=== PATIENT | female | born 1990 | race Caucasian/White ===

== ENCOUNTER 2024-10-16 18:18 | Emergency (ER) | payer OTHER, SELFPAY ==
[2024-10-16 18:22] VITALS: BP 135/77; PULSE 87; RESP 16; TEMP 37; O2SAT 100; BMI 24.8
[2024-10-16 19:29] LABS: Alanine Aminotransferase 19 IU/L (<35); Albumin 4.7 g/dL (3.5-5.0); Albumin Globulin Ratio 1.8 (1.0-2.8); Alkaline Phosphatase 33 U/L (38-126); Aspartate Aminotransferase 26 IU/L (14-36); BUN Creatinine Ratio 17.1 (6-22); Bilirubin Total 1.1 mg/dL (0.2-1.3); Blood Urea Nitrogen 13 mg/dL (7-17); Calcium 9.6 mg/dL (8.4-10.2); Carbon Dioxide 28 mmol/L (22-32); Chloride 104 mmol/L (98-107); Estimated Glomerular Filt Rate > 60 mL/min (>60); Globulin 2.6 g/dL (1.7-4.1); Glucose 102 mg/dL (70-100); HEMOLYSIS < 15 (0-50); Lipase 78 U/L (23-300); Potassium 3.9 mmol/L (3.4-5.1); Sodium 139 mmol/L (137-145); Total Protein 7.3 g/dL (6.3-8.2)
[2024-10-16 19:32] LABS: Add Manual Diff / Slide Review NO; Basophils Absolute Auto 100 /uL (0-100); Basophils Percent Auto 2.1 % (0-2); Eosinophils Absolute Auto 100 /uL (0-450); Eosinophils Percent Auto 1.7 % (2-4); Hematocrit 41.5 % (36-46); Hemoglobin 14.1 g/dL (12.0-16.0); Lymphocytes Absolute Auto 1700 /uL (1100-4500); Lymphocytes Percent Auto 35.4 % (25-40); Mean Corpuscular HGB Conc 33.9 % (30-36); Mean Corpuscular Hemoglobin 32.1 PG (26-34); Mean Corpuscular Volume 94.8 fL (80-100); Monocytes Absolute Auto 400 /uL (0-900); Monocytes Percent Auto 8.1 % (3-14); Neutrophils Absolute Auto 2600 /uL (1500-7000); Neutrophils Percent Auto 52.7 % (50-75); Platelet Count 222 X10^3/uL (150-400); Red Blood Cell Count 4.38 X10^6/uL (4.0-5.2); White Blood Cell Count 4.9 X10^3/uL (4.5-11.0)
--- NOTE | 2024-10-16 22:28 | ED_ITS ---
HPI - Abdominal Pain General Chief Complaint: Abdominal Pain Stated Complaint: womens health issues Time Seen by Provider: 10/16/24 22:28 Source: patient, RN notes reviewed and old records reviewed Mode of arrival: Ambulatory Limitations: no limitations History of Present Illness HPI narrative: 34-year-old female no reported medical issues who presents with complaint of lower pelvic pain for the past 1-2 days. States the pain has been a little bit more in the left but has been on both left and right but seems to be more predominant to the left. Patient notes she used to have an IUD was removed after about 7 years had kind of irregular periods followed by a period of regular 28 day cycles and then has become more regular again her most recent was about 11 days late she just finished it about 2 days ago. She states it was a typical otherwise. She denies fevers or chills. She was has a little bit occasional nausea. No chest pain or shortness of breath. No back or flank pain. Denies any diarrhea or constipation, no black or bloody stools. Little bit of urinary frequency but no dysuria or extensive urgency. She states no vaginal discharge. She is sexually active no concerns for STIs. She is currently trying to get . Patient states she was on a no other daily medications. She was had prior adenoids removed. Denies any other surgeries. No known drug allergies. No tobacco, occasional alcohol, no recreational drugs. Patient defers anything for pain. Related Data Allergies Allergy/AdvReac Type Severity Reaction Status Date / Time No Known Drug Allergies Allergy Verified 10/16/24 18:22 Review of Systems Review of Systems ROS Unobtainable: All systems reviewed & are unremarkable except as noted in HPI and below Patient History Social History Smoking Status: Never smoker Smoking Status: Never smoker Exam Narrative Exam Narrative: GENERAL: Alert and oriented x three, well-appearing female in no acute distress. HEENT: Head normocephalic, atraumatic, EOMI, pupils reactive, face symmetric, moist mucous membranes NECK: Supple, full range of motion CARDIOVASCULAR: Regular rate and rhythm without murmurs, rubs or gallops. RESPIRATORY: Breath sounds equal bilaterally, no wheezes rales or rhonchi. ABDOMEN: Soft, nontender. Nondistended. Normoactive bowel sounds all 4 quadrants. No guarding or rebound, rigidity, no mass : No CVA tenderness EXTREMITIES: Normal range of motion, no clubbing or edema. Neurovascularly intact NEUROLOGICAL: Cranial nerves II through XII grossly intact. Moving all extremities SKIN: Warm, dry, no petechiae, no rashes or lesions. Initial Vital Signs Initial Vital Signs: Vital Signs Temperature 98.6 F 10/16/24 18:22 Pulse Rate 87 10/16/24 18:22 Respiratory Rate 16 10/16/24 18:22 Blood Pressure 135/77 10/16/24 18:22 Pulse Oximetry 100 10/16/24 18:22 Oxygen Delivery Method Room Air 10/16/24 18:22 Course Orders Ordered: ED Orders 10/16/24 19:09 Complete Blood Count AUTO DIFF Stat Comprehensive Metabolic Panel Stat Lipase Stat 10/16/24 22:39 US pelvic complete Stat 10/16/24 23:20 Wet Prep Tric BV [place] Stat Discontinued Medications Ondansetron HCl (Ondansetron 4 Mg/2 Ml Inj) 4 mg IV NOW PRN PRN Reason: Nausea And Vomiting Ondansetron HCl (Ondansetron 4 Mg Odt) 4 mg PO NOW PRN PRN Reason: Nausea And Vomiting Vital Signs Vital signs: Vital Signs - 8 hr 10/16/24 18:22 10/17/24 00:52 Temperature 98.6 F Pulse Rate 87 77 Respiratory Rate 16 18 Blood Pressure 135/77 129/76 Pulse Oximetry 100 99 Oxygen Delivery Method Room Air Room Air MDM - Abdominal Pain Lab Data 10/16/24 19:09 10/16/24 19:09 Labs: Lab Results 10/16/24 Range/Units 19:09 WBC 4.9 (4.5-11.0) X10^3/uL RBC 4.38 (4.0-5.2) X10^6/uL Hgb 14.1 (12.0-16.0) g/dL Hct 41.5 (36-46) % MCV 94.8 (80-100) fL MCH 32.1 (26-34) PG MCHC 33.9 (30-36) % RDW 13.0 (11.6-14.8) % Plt Count 222 (150-400) X10^3/uL Neut % (Auto) 52.7 (50-75) % Lymph % (Auto) 35.4 (25-40) % [place]cd[place] % (Auto) 8.1 (3-14) % Eos % (Auto) 1.7 L (2-4) % Baso % (Auto) 2.1 H (0-2) % Neut # (Auto) 2600 (4728-4698) /uL Lymph # (Auto) 1700 (8543-2260) /uL Mcdonough # (Auto) 400 (0-900) /uL Eos # (Auto) 100 (0-450) /uL Baso # (Auto) 100 (0-100) /uL Sodium 139 (137-145) mmol/L Potassium 3.9 (3.4-5.1) mmol/L Chloride 104 (98-107) mmol/L Carbon Dioxide 28 (22-32) mmol/L BUN 13 (7-17) mg/dL Creatinine 0.76 (0.52-1.04) mg/dL Estimated GFR > 60 (>60) mL/min BUN/Creatinine Ratio 17.1 (6-22) Glucose 102 H (70-100) mg/dL Calcium 9.6 (8.4-10.2) mg/dL Total Bilirubin 1.1 (0.2-1.3) mg/dL AST 26 (14-36) IU/L ALT 19 (<35) IU/L Alkaline Phosphatase 33 L (38-126) U/L Total Protein 7.3 (6.3-8.2) g/dL Albumin 4.7 (3.5-5.0) g/dL Globulin 2.6 (1.7-4.1) g/dL Albumin/Globulin Ratio 1.8 (1.0-2.8) Lipase 78 (23-300) U/L Point of care testing: Point of Care Testing Test Results Negative Urine Dip Bedside Urine Glucose Negative Bedside Urine Bilirubin - Negative Bedside Urine Ketone - Negative Urine Specific [place] 1.005 Bedside Urine Occult Blood - Negative Bedside Urine pH 8.0 Bedside Urine Protein - Negative Bedside Urine Urobilinogen - Negative Bedside Urine Nitrite - Negative Bedside Urine Leukocytes - Negative Esterase MDM Narrative Medical decision making narrative: 34-year-old female lower pelvic pain has had somewhat irregular menses is trying to get , labs show normal white count hemoglobin and platelets. Chemistries are overall appropriate normal renal function glucose is 102 alk- phos is 33 LFTs are negative. Urine is negative, point of care urine is negative. Wet mount is negative. Pelvic ultrasound found acute sonographic abnormality prominent ovarian volumes bilaterally with greater than 12 follicle seen in each ovary no evidence of torsion findings may ultrasound definition of polycystic ovaries. Findings are nonspecific. Patient has mild pain she and I discussed pelvic exam but she politely defers she does not have high concerns for STIs but is agreeable to wet prep with self swab. We will also obtain pelvic ultrasound labs, and urine are otherwise normal. Discussed patient's findings her workup tonight. She was very comfortable she has follow up with the OBG[facility] [employer] did give her a copy of her ultrasound report discussed she was trying to get maybe helpful to have them follow this up to evaluate if she does have PCOS they can use this information to help facilitate . Discussed return precautions all questions answered. Patient feels comfortable with the plan Discharge Plan Departure Patient Disposition: Home Clinical Impression: Pelvic pain Instructions: DI for Pelvic Pain Activity Restrictions/Additional Instructions: Please follow up for recheck, your ultrasound did show prominent ovarian volumes with greater than 12 fallen calls in each ovary this can sometimes indicate PCOS so I would recommend follow up with primary care ethyl blender for further evaluation. A copy of your ultrasound report is included. You continue with ibuprofen up to 600 mg every 6 hours and/or acetaminophen up to a 1000 mg every 6 hours as needed for pain. Please return for fevers, rapidly worsening abdominal back or flank pain, persistent vomiting, black or bloody stools, difficulty or inability to urinate or other new or concerning changes Referrals: ProviderAntoni [Primary Care Provider] - Stand Alone Forms: Patient Portal/API/Survey
--- NOTE | 2024-10-16 22:39 | DI.US.S_ITS ---
PROCEDURE: US PELVIC COMPLETE INDICATIONS: pelvic pain, L>R, irregular menses. TECHNIQUE: Real-time scanning was performed of the pelvic organs, with image documentation. Additional endovaginal scanning was necessary due to incomplete visualization of the adnexal and endometrial structures by transabdominal scanning. COMPARISON: None. FINDINGS: Uterus: Uterus is retroverted and normal in size at 5.7 x 4.2 x 3.5 cm. The myometrium is homogeneous. The endometrium measures 6 mm combined thickness. Ovaries: The right ovary measures 3.6 x 2.5 x 2.4 cm, with a calculated ovarian volume of 12 cc. The left ovary measures 4.6 x 2.4 x 2.2 cm, with a calculated ovarian volume of 13 cc. The ovaries have a normal sonographic appearance. Greater than 12 follicles seen in the bilateral ovaries No adnexal masses are seen. Other: No pathologic free abdominal or pelvic fluid. IMPRESSION: Pelvic ultrasound without acute sonographic abnormalities. Prominent ovarian volumes bilaterally with greater than 12 follicles seen in each ovary. No evidence for ovarian torsion. Findings meet the [place] definition of polycystic ovaries. In the absence of ovulatory dysfunction or clinically/biochemically diagnosed hyperandrogenism, findings are non specific and do not indicate the presence of polycystic ovarian syndrome. We strive to produce accurate, complete, and clear reports of imaging services. To assist us in improving patient care, this report was composed using standard report templates and voice recognition software. Therefore, it may contain abnormal punctuation, insertions and/or omissions. Occasional wrong-word or sound-alike substitutions may occur. Though we review the report and make efforts to correct it, we do recommend that the report be read carefully in proper context to recognize any text inaccuracies. Dictated by: Brent Rubio M.D. on 10/17/2024 at 0:18 Approved by: Brent Rubio M.D. on 10/17/2024 at 0:22
[2024-10-17 00:52] VITALS: BP 129/76; PULSE 77; RESP 18; O2SAT 99
== END 2024-10-17 00:54 | disposition home or self-care (01) ==
PROVIDERS: Emergency Provider Emergency Medicine
DX: R10.2 Pelvic and perineal pain (principal); R35.0 Frequency of micturition; R11.0 Nausea
CPT/HCPCS: 76830; 76856; 80053; 81003; 81025; 83690; 85025; 87210; 93975; 99282; 99284